=== PATIENT | male | born 1965 | race Caucasian/White ===

== ENCOUNTER 2020-05-03 15:34 | Emergency (ER) | payer BC, OTHER ==
[~2020-05-03] VITALS: Ht 172.7 cm; Wt 77.4 kg
[2020-05-03] MEDS ORDERED: methylPREDNISolone 125MG 2ML VIAL IV ONE (16:30)
[2020-05-03 17:04] LABS: BASO # 0.1 10^3/uL (0.0-0.2); BASO % 0.7 % (0.0-1.0); EOS # 0.1 10^3/uL (0.0-0.5); EOS % 1.6 % (0.0-3.0); HEMATOCRIT 45.3 % (42.0-52.0); HEMOGLOBIN 15.4 g/dl (13.5-17.5); LYMPH # 2.1 10^3/uL (1.5-5.0); LYMPH % 25.6 % (24.0-44.0); MEAN CORPUSCULAR HEMOGLOBIN 32.5 pg (27.0-33.0); MEAN CORPUSCULAR VOLUME 95.6 fl (80.0-96.0); MONO # 0.8 10^3/uL (0.0-0.8); MONO % 9.3 % (0.0-5.0); NEUTROPHILS # 5.1 10^3/uL (1.5-8.5); NEUTROPHILS % 62.4 % (36.0-66.0); PLATELET COUNT, AUTOMATED 277 10^3/uL (150-450); RED BLOOD COUNT 4.74 10^6/uL (4.30-6.10); WHITE BLOOD COUNT 8.2 10^3/uL (4.0-10.0)
[2020-05-03] MEDS ORDERED: ISOVUE-370 76% 100ML VIAL As Ordered ONE (17:35)
[2020-05-03 17:37] LABS: ALBUMIN 3.6 GM/DL (3.2-5.2); ALT/SGPT 41 U/L (12-78); BILIRUBIN,DIRECT 0.1 MG/DL (0.0-0.2); BILIRUBIN,TOTAL 0.2 MG/DL (0.2-1.0); CK-MB VALUE MASS < 1.0 NG/ML (<3.6); CPK CREATINE PHOSPHOKINASE 117 U/L (39-308); MB/CK RELATIVE INDEX 0.85 (< OR =4); NT-PRO BNP 74 PG/ML (<125); THYROXINE (T4) 7.7 UG/DL (4.5-12.0); TOTAL PROTEIN 7.9 GM/DL (6.4-8.2); TROPONIN I < 0.02 NG/ML (< 0.10)
--- NOTE | 2020-05-03 19:06 | REPVR ---
PROCEDURE INFORMATION: Exam: CT Angiography Chest With Contrast Exam date and time: 05/03/2020 6:51 PM Age: 54 years old Clinical indication: Chest pain; Additional info: SOB TECHNIQUE: Imaging protocol: Computed tomographic angiography of the chest with intravenous contrast. 3D rendering (Not supervised by radiologist): MIP and/or 3D reconstructed images were created by the technologist. Radiation optimization: All CT scans at this facility use at least one of these dose optimization techniques: automated exposure control; mA and/or kV adjustment per patient size (includes targeted exams where dose is matched to clinical indication); or iterative reconstruction. Contrast material: ISO 370; Contrast volume: 75 ml; Contrast route: INTRAVENOUS (IV); COMPARISON: No relevant prior studies available. FINDINGS: Pulmonary arteries: There are no pulmonary emboli. Aorta: Dilatation of the ascending aorta measures 4.1 cm at the mid sinus of Valsalva level. There is no aortic dissection or aneurysm. Lungs: Scattered pulmonary parenchymal nodules measuring up to 7.6 mm in the right apex, 4 mm in the right upper lobe, 6 mm in the right upper lobe. Paraseptal emphysema both lung apices with mild centrilobular emphysematous changes demonstrated in the mid and upper lung zones bilaterally. Irregular ground-glass parenchymal opacity in the anterior segment of the left lower lobe adjacent to the major fissure and in the right lower lobe also adjacent to the major fissure. Additional small foci of ground-glass opacity demonstrated at the left lung base. These may represent atelectasis although an evolving pneumonitis is not excluded. Bibasilar atelectasis. Pleural space: Unremarkable. No pneumothorax. No pleural effusion. Heart: Unremarkable. No cardiomegaly. No pericardial effusion. Lymph nodes: Unremarkable. No enlarged lymph nodes. Bones/joints: The spine demonstrates mild degenerative changes. Soft tissues: Unremarkable. IMPRESSION: 1. Scattered pulmonary parenchymal nodules measuring up to 7.6 mm in the right apex, 4 mm in the right upper lobe, 6 mm in the right upper lobe. For patients at low risk (minimal or absent history of smoking and of other known risk factors), recommend CT at 3-6 months, then consider CT at 18-24 months. For patients at high risk (history of smoking or of other known risk factors), recommend CT at 3-6 months, then CT at 18-24 months. (MacMahon, et al., Fleischner Society, 2017) 2. Paraseptal emphysema both lung apices with mild centrilobular emphysematous changes demonstrated in the mid and upper lung zones bilaterally. 3. Irregular ground-glass parenchymal opacity in the anterior segment of the left lower lobe adjacent to the major fissure and in the right lower lobe also adjacent to the major fissure. Additional small foci of ground-glass opacity demonstrated at the left lung base. These may represent atelectasis although an evolving pneumonitis is not excluded. 4. Dilatation of the ascending aorta measures 4.1 cm at the mid sinus of Valsalva level. 5. There is no aortic dissection or aneurysm. 6. There are no pulmonary emboli. Electronically signed by: Steven Espinosa On 05/03/2020 19:06:03 PM
[2020-05-03] MEDS ORDERED: PRED10TA2 PO (19:44)
[2020-05-03 19:51] VITALS: BP 165/90
--- NOTE | 2020-05-04 08:03 | ECGEPIP ---
[facility] - ED Test Date: 2020-05-03 Pat Name: MARIA ISABEL MIN Department: Room: - Gender: Male Facilities Engineer: elder : [id number] Requested By: ISABELL CESAR Order Number: [id number] Reading MD: Anita Valiente Measurements Intervals Wallace Rate: 80 P: 42 FL: 155 QRS: 26 QRSD: 102 T: 41 QT: 346 QTc: 401 Interpretive Statements SINUS RHYTHM No prior Electronically Signed on 05-04-2020 8:03:48 EDT by nAita Valiente
--- NOTE | 2020-06-12 13:52 | ED PDOC ---
Post-Departure Follow-Up cta chest faxed to [facility] for fu Saranya Jon MD Jun 12, 2020 13:52
== END 2020-05-03 19:58 | disposition home or self-care (01) ==
LOC: M ED 15:34
DX: J44.0 Chronic obstructive pulmonary disease with (acute) lower respiratory infection (principal); R91.1 Solitary pulmonary nodule; J18.9 Pneumonia, unspecified organism; M54.5 Low back pain; Z91.018 Allergy to other foods; F17.210 Nicotine dependence, cigarettes, uncomplicated
CPT/HCPCS: 36415; 71275; 80047; 80076; 82550; 82553; 83605; 83880; 84436; 84443; 84484; 85025; 85379; 87040; 87486; 87581; 87633; 87798; 93005; 96374; 99284; J2930; Q9967

== ENCOUNTER → 2021-09-18 | Outpatient (REF) | payer OTHER, BC ==
[~2021-09-18] MED LIST: PRED10TA2 PO
== END ==
LOC: M LAB REF 09:00
PROVIDERS: ATTEND Orthopaedic Surgery
DX: L72.0 Epidermal cyst (principal)

== ENCOUNTER → 2022-09-15 | Outpatient (CLI) | payer BC, OTHER | LOC: M LABSMTC 09:31 | PROVIDERS: ATTEND Student in an Organized Health Care Education/Training Program | DX: Z11.52 Encounter for screening for COVID-19 (principal) ==

== ENCOUNTER → 2024-01-22 | Outpatient (CLI) | payer BC, OTHER | LOC: M WUC 12:38 | PROVIDERS: ATTEND Student in an Organized Health Care Education/Training Program | DX: M25.531 Pain in right wrist (principal) ==